=== PATIENT | male | born 1985 | race American Indian/Alaskan Native ===

== ENCOUNTER 2017-06-24 18:13 | Emergency (ER) | payer SELFPAY ==
[2017-06-24 18:23] VITALS: TEMP 98.1; O2SAT 98
[2017-06-24] MEDS: Dexamethasone 4 mg/1 ml IM STA ×2 (18:57→18:58)
--- NOTE | 2017-06-24 19:13 | C.PDOC ---
History Of Present Illness 31 year old male presents to the ER with a complaint of worsening right leg pain that began 2 weeks ago after playing basketball. Patient states the pain worsens with walking and bending. Denies weakness, numbness, direct trauma, or Hx of similar. Time Seen by Provider: 06/24/17 18:21 Chief Complaint (Nursing): Lower Extremity Problem/Injury History Per: Patient History/Exam Limitations: no limitations Onset/Duration Of Symptoms: Days Current Symptoms Are (Timing): Still Present Recent travel outside of the [place]: No Past Medical History Reviewed: Historical Data, Nursing Documentation, Vital Signs Vital Signs: Last Vital Signs Temp 98.1 F 06/24/17 18:20 Pulse 72 06/24/17 19:58 Resp 18 06/24/17 19:58 BP 147/86 06/24/17 19:58 Pulse Ox 98 06/24/17 19:58 - Medical History PMH: Asthma Family History: States: Unknown Family Hx - Social History Hx Tobacco Use: No Hx Alcohol Use: Yes Hx Substance Use: No - Immunization History Hx Tetanus Toxoid Vaccination: No Hx Influenza Vaccination: No Hx Pneumococcal Vaccination: No Review Of Systems Musculoskeletal: Positive for: Leg Pain Neurological: Negative for: Weakness, Numbness Physical Exam - Physical Exam Appears: Non-toxic Skin: Normal Color, Warm, Dry, No Rash Head: Atraumatic, Normacephalic Eye(s): bilateral: Normal Inspection Oral Mucosa: Moist Neck: Normal ROM, No Midline Cervical Tenderness, No Paracervical Tenderness Back: No CVA Tenderness, No Vertebral Tenderness, No Paraspinal Tenderness, Straight Leg Raising (Positive) Extremity: Normal ROM (x4), No Tenderness, No Calf Tenderness, No Deformity, No Swelling Neurological/Psych: Oriented x3, Normal Speech, Normal Motor, Normal Sensation Gait: Steady ED Course And Treatment O2 Sat by Pulse Oximetry: 98 (Room air) Pulse Ox Interpretation: Normal Medical Decision Making Medical Decision Making: Flexeril, decadron, and toradol administered. On reevaluation, patient is ambulatory in the ER without any pain or difficulty, will discharge home with Rx and instructions to follow up with PMD or return if symptoms worsen. Disposition - Disposition Referrals: [facility] [Outside] Disposition: HOME/ ROUTINE Disposition Time: 19:52 Condition: GOOD Additional Instructions: Follow up with the medical doctor within 1-2 days. Return if worsened. 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 - Scribe Statement The provider has reviewed the documentation as recorded by the Scribe Agustín Conteh All medical record entries made by the Jyoti were at my direction and personally dictated by me. I have reviewed the chart and agree that the record accurately reflects my personal performance of the history, physical exam, medical decision making, and the department course for this patient. I have also personally directed, reviewed, and agree with the discharge instructions and disposition.
[2017-06-24 19:59] VITALS: BP 147/86; PULSE 72; RESP 18
== END 2017-06-24 20:02 | disposition home or self-care (01) ==
LOC: C.ER 18:13
DX: S86.911A Strain of unspecified muscle(s) and tendon(s) at lower leg level, right leg, initial encounter (principal); X50.0XXA Overexertion from strenuous movement or load, initial encounter; Y93.67 Activity, basketball; Y92.39 Other specified sports and athletic area as the place of occurrence of the external cause
CPT/HCPCS: 96372; 99284; J1100; J1885

== ENCOUNTER 2017-11-12 22:38 | Emergency (ER) | payer SELFPAY ==
[2017-11-12 22:46] VITALS: BP 156/90; PULSE 105; TEMP 98; O2SAT 98
--- NOTE | 2017-11-13 00:42 | C.PDOC ---
History Of Present Illness 32 year old male presents to the ED for evaluation of swelling to the left orbital area. Patient states that he accidentally walked into a bathroom door yesterday. Patient reports he initially felt minimal discomfort yesterday. Patient today blew his nose and noticed his left orbital area got swollen. Patient denies eye pain, eye discharge, eye redness, visual changes, URI symptoms. Time Seen by Provider: 11/12/17 22:55 Chief Complaint (Nursing): Eye Problem History Per: Patient History/Exam Limitations: no limitations Onset/Duration Of Symptoms: Days Current Symptoms Are (Timing): Still Present Quality: "Pain" Wears Contact Lens?: No Associated Symptoms: Swelling Recent travel outside of the [place]: No Additional History Per: Patient Past Medical History Reviewed: Historical Data, Nursing Documentation, Vital Signs Vital Signs: Last Vital Signs Temp 98 F 11/12/17 22:43 Pulse 105 H 11/12/17 22:43 Resp 20 11/13/17 00:59 BP 156/90 H 11/12/17 22:43 Pulse Ox 98 11/13/17 00:58 - Medical History PMH: Asthma Surgical History: No Surg Hx Family History: States: Unknown Family Hx - Social History Hx Tobacco Use: No Hx Alcohol Use: Yes Hx Substance Use: No - Immunization History Hx Tetanus Toxoid Vaccination: No Hx Influenza Vaccination: No Hx Pneumococcal Vaccination: No Review Of Systems Constitutional: Negative for: Fever, Chills Eyes: Positive for: Other. Negative for: Vision Change ENT: Negative for: Nose Discharge, Nose Congestion Gastrointestinal: Negative for: Nausea, Vomiting Neurological: Negative for: Weakness, Numbness, Headache, Dizziness Physical Exam - Physical Exam Appears: Non-toxic, No Acute Distress Skin: Normal Color, Warm, Dry Head: Atraumatic, Normacephalic, No Tenderness (facial bones), Swelling (left periorbital area), No Other (deformity) Eye(s): bilateral: Normal Inspection, PERRL, EOMI, left: Other (no signs of globe entrapment) Ear(s): Bilateral: Normal Nose: No Epistaxis, No Deformity, No Tenderness, No Septal Hematoma Neck: Normal ROM, Supple Extremity: Normal ROM, No Tenderness, No Swelling Neurological/Psych: Oriented x3, Normal Speech Gait: Steady ED Course And Treatment O2 Sat by Pulse Oximetry: 98 (ON RA) Pulse Ox Interpretation: Normal - CT Scan/US CT facial Other Rad Studies (CT/US): Read By Radiologist, Radiology Report Reviewed CT/US Interpretation: EXAM: CT Orbits Without Intravenous Contrast. CLINICAL HISTORY: 32 years old, male; Pain; Eye pain; Left; Additional info: Trauma rt orbital area. , now periorbit swelling. TECHNIQUE: Axial computed tomography images of the orbits without intravenous contrast. All CT. scans at this facility use at least one of these dose optimization techniques: automated exposure. control; mA and/or kV adjustment per patient size (includes targeted exams where dose is matched to. clinical indication); or iterative reconstruction. Coronal and sagittal reformatted images were created. and reviewed. COMPARISON: No relevant prior studies available. FINDINGS: Orbits: The left globe is intact. Sinuses: Unremarkable. No air-fluid levels. Bones/ joints: Medial orbital wall fracture on the left. Slightly displaced fracture at the base of the left nasal bone. Soft tissues: Gas in soft tissues over the orbit and within the orbit consistent with recent trauma. Dental: The maxillary incisors are missing. Dental caries and periodontal lucencies noted in the left mandible. IMPRESSION: 1. Medial orbital wall fracture on the left. 2. Gas in soft tissues over the orbit and within the orbit consistent with recent trauma. 3. Slightly displaced fracture at the base of the left nasal bone. Thank you for allowing us to participate in the care of your patient. Dictated and Authenticated by: Jimenez Raymundo MD. 11/13/2017 12:41 AM Eastern Time ([place] & [place]) Progress Note: Plan: - Ct orbits. CT results d/w pt- Pt remains stable no worsening swelling, pt able to mve left eye freely , no signs of entrapment. Pt advised to follow up with Dr Chin or at [facility]. Return precautions were discussed and understood by pt Disposition Counseled Patient/Family Regarding: Diagnosis, Need For Followup - Disposition Referrals: Jackie Chin DMD [Staff Provider] - Disposition: HOME/ ROUTINE Disposition Time: 00:50 Condition: STABLE Additional Instructions: Please call Dr Chin for appointment or call any OMS doctor for an evaluation Or may follow up at [facility] Return to ER if worse Instructions: Skull and Facial Fractures (DC) Forms: [employer] (Slovenian), Work Excuse - Clinical Impression Clinical Impression: Orbital fracture, Orbital swelling - PA / LAB SUPPORT TECH / Resident Statement MD/DO has reviewed & agrees with the documentation as recorded. - Scribe Statement The provider has reviewed the documentation as recorded by the Scribe Brian Mena All medical record entries made by the Scribe were at my direction and personally dictated by me. I have reviewed the chart and agree that the record accurately reflects my personal performance of the history, physical exam, medical decision making, and the department course for this patient. I have also personally directed, reviewed, and agree with the discharge instructions and disposition.
[2017-11-13 00:59] VITALS: RESP 20
--- NOTE | 2017-11-13 09:07 | CT ---
CT orbits History: Periorbital swelling. Comparison: None available. Technique: Real-time sonography was performed through the orbits without the use of intravenous contrast. Subsequently, sagittal and coronal reformatted images were obtained. This CT exam was performed using one or more of the following dose reduction techniques: Automated exposure control, adjustment of the mA and/or kV according to patient size, and/or use of iterative reconstruction technique. Findings: Fracture deformity of the medial wall of the left orbital globe Mildly displaced fracture deformity at the base of jump the left nasal bone. Gas in the soft tissues over the left orbit and within the orbit consistent with recent trauma. Mucosal thickening and opacification of the ethmoid air cells. Maxillary incisors are missing. Dental caries and periodontal lucencies noted in the left mandible. Impression: Medial orbital wall fracture on the left. Slightly displaced fracture at the base of the left nasal bone. Gas in the soft tissues over the orbit and within the orbit consistent with recent trauma. Mucosal thickening and opacification of the ethmoid air cells. Additional findings as above. These findings were preliminarily reported at 12:41 a.m. on 11/13/[address] Jimenez Raymundo from [facility].
== END 2017-11-13 00:59 | disposition home or self-care (01) ==
LOC: C.ER 22:38
DX: S02.82XA Fracture of other specified skull and facial bones, left side, initial encounter for closed fracture (principal); W22.8XXA Striking against or struck by other objects, initial encounter; H05.89 Other disorders of orbit

== ENCOUNTER 2018-05-08 17:20 | Emergency (ER) | payer OTHER | END 2018-05-08 19:40 | disposition home or self-care (01) | LOC: C.ER 17:20 ==